=== PATIENT | female | born 1985 | race Caucasian/White ===

== ENCOUNTER 2017-09-03 17:18 | Outpatient (CLI) | payer MEDICAID ==
[~2017-09-03] VITALS: Ht 160 cm; Wt 64.5 kg
[~2017-09-03 17:18] MED LIST: AZIT250T94 PO; IBUP-1542 PO; OSLT75C PO
[2017-09-03 17:32] VITALS: BP 99/63; PULSE 82; RESP 18
[2017-09-03 17:33] VITALS: Ht 160 cm; Wt 64.5 kg
--- NOTE | 2017-09-03 18:02 | RADRPT ---
PROCEDURE: US biophysical profile. CLINICAL INDICATION: labor. TECHNIQUE: Multiple sonographic images of the uterus were obtained. Transvaginal sonogra phy of the cervix was also performed. The images were reviewed on a PACS workstation. COMPARISON: No prior studies are available for comparison. FINDINGS: There is a single live intrauterine gestation. heart rate is 134 beats per minute. The position is cephalic. The placenta is posterior grade II with complete placenta previa. Cervical length is 2.7 cm. The ANGELA is 9.2 cm. (Normal = 5-20 cm.) Breathing Movement: 2 Gross Body Movement: 2 Tone: 2 Qualitative Amniotic Fluid Volume: 2 TOTAL: 8 IMPRESSION: 1. The biophysical score is 8/8. 2. There is complete placenta previa. 3. Cervical length is 2.7 cm. RPTAT: QQ .Karl Hussein MD, Date Time Electronically viewed and signed by .Karl Hussein MD, MD on 09/03/2017 18:02 .R/
--- NOTE | 2017-09-03 18:41 | TRIAGE ---
OB Triage Datetime Report Generated by CPN: 09/03/2017 18:40 Datetime: 09/03/2017 18:19 Stage of : OB Triage Headache: Denies Blurred Vision: No RUQ Epigastric Pain: Denies Facial Edema: None Labor Evaluation Frequency: occ Monitor Mode: External Quality: Mild Pattern: Normal: <= 5 Contractions in 10 Minutes Resting Tone [place]: Relaxed Heart Rate FHR Baseline Rate: 130 Monitor Mode: External US FHR Baseline Changes: No Baseline Change Variability: Moderate 6-25 bpm Accelerations: 15X15 Decelerations: None Category: Category I Pain Presence: None/Denies Vaginal Exam Membrane Status: Intact Datetime: 09/03/2017 17:41 Stage of : OB Triage Maternal Assessment Level of Consciousness: Fully Conscious DTR's/Clonus: DTRs 2+; No Clonus Headache: Denies Blurred Vision: No Respiratory Effort: Unlabored; Regular Rhythm; Equal Expansion Breath Sounds, Left: Clear and Equal Breath Sounds, Right: Clear and Equal Nausea/Vomiting: Denies RUQ Epigastric Pain: Denies Lower Extremities Edema: None Degree: None Upper Extremities Edema: None Degree: None Facial Edema: None Temperature Route: Oral Fall Risk Assessment History of Falling: (0) No Secondary Diagnosis: (0) No Ambulatory Aid: (0) Bedrest/Nurse Assist IV Therapy: (0) No Gait: (0) Normal/Bedrest/Immobile Mental Status: (0) Oriented to Own Ability Fall Score: 0 Fall Risk Score Definition: No Risk: No action required Monitor Mode: External Heart Rate FHR Baseline Rate: 150 Monitor Mode: External US Pain Assessment Pain Scale: 0 Datetime: 09/03/2017 17:23 EGA: 37.0 Datetime: 09/03/2017 17:06 Time of Arrival: 09/03/2017 17:06 Arrived By: Ambulatory Arrived From: Home Chief Complaint: decreased movement since 2pm Movement: Decreased Contractions: Denies/Absent Rupture of Membranes: Denies Vaginal Bleeding: None Vaginal Discharge: Denies Recent Sexual Intercouse: Denies Abdominal Trauma: Not Applicable Patient Complaints: Other Additional Patient Complaints: presented to triage complaining of not feeling her baby move since 2pm, has been seeing Dr Lam and was told that she could go to any hospital due to her md is chris livingston, she had MRI 08/21/17 and was told that she has placenta previa and posibility of hysterectomy dur ing c/s, pt came to hospital and said that she wants second opinion. denies feeling contractions at present, denies bleeding and leaking of water. Time Provider Notified: 09/03/2017 17:30 Provider Notified: Dr Sunshine Initial Plan: efm/ u/s
--- NOTE | 2017-09-03 21:09 | CONS ---
Date/Time of Note Date/Time of Note DATE: 09/03/17 TIME: 20:56 Consultation Date/Type/Reason Admit Date/Time This was mostly due to the fact that the ultrasound showed that she has central placenta previa. September 03, 2017 OB triage consult This patient is a 32 years old , 4, para 3, with estimated date date of confinement of September 24, 2016, which makes it about 37 weeks now. She came to triage complaining of low movement. On examination, she is a well-developed well-nourished patient her ear nose throat ,neck ,chest heart are negative ,Abdomen was soft she has occasional contraction. heart tracing was reactive with fairly good variability and occasional acceleration ,no decelerations. On her general examination, her blood pressure was 99/63, pulse rate 84, respiration 18, temperature 98.8, and oxygen saturation was 96.7 in room temperature heart tone was running around 150-16 She mentioned that the reason she came here was the fact that, her barber shop operator told her not to come back in her office anymore and go to another clinic that may accept the rest of her care,and deliver her ,. Constitutional: No chills, No diaphoresis, No disoriented, No febrile, No improved, No no complaints, No other, No poor po, No requiring IVF, No requiring O2 Eyes: No discharge, No no complaints, No other, No pain, No redness, No visual change ENT: No bleeding, No congestion, No discharge, No dysphagia, No no complaints, No other, No pain, No sore throat Respiratory: No cough, No no complaints, No other, No pain, No pleuritic pain, No shortness of breath, No sputum, No wheezing Cardiovascular: No chest pain, No edema, No lightheadedness, No no complaints, No orthopenea, No other, No palpitations, No paroxysmal nocturnal dyspnea Gastrointestinal: No blood, No constipation, No decreased appetite, No diarrhea , No flatus, No nausea, No no complaints, No other, No pain, No passing stool, No vomiting Genitourinary: other (Pelvic examination was not done for several reason 1 with a history of placenta previa to do the fact that she did not have any contraction or vaginal bleeding), No bleeding, No discharge, No dysuria, No flank pain, No hematuria, No no complaints Musculoskeletal: No back pain, No bone/joint pain, No neck pain, No no complaints, No other, No restricted range of motion, No swelling Skin: No bruising, No erythema, No laceration, No no complaints, No other, No pruritis, No rash, No skin lesions Neurologic: other, No confusion, No dizziness, No focal-weakness, No headache, No no complaints , No seizure, No syncope Additional Comments On ultrasound study the result was a single live intrauterine gestation with heart rate 134 bpm vertex presentation placenta is posterior ,grade 2 ,with complete placenta previa cervical length was 2.7 cm her ANGELA was 9.2 cm and biophysical profile was 8 .Disposition ; the findings was discussed with the patient in detail and the fact that she should find another barber shop operator for continuation of care or just discuss seriously her condition with her previous barber shop operator and the fact that they have some obligation to help her to find a physician that will be able to continue her care and do her high risk section . Exam/Review of Systems Vital Signs Vitals Vital Signs Date Time Temp Pulse Resp B/P Pulse Ox O2 Delivery O2 Flow Rate FiO2 09/03/17 17:32 98.2 82 18 99/63 96 Room Air MERCEDES ALEJANDRE MD Sep 03, 2017 21:08
[2017-09-06] MEDS ORDERED: PREN-17 PO (08:45)
== END 2017-09-03 18:52 | disposition home or self-care (01) ==
LOC: OBT 17:18 → L-D 17:21 → OBT 18:52
DX: O44.03 Complete placenta previa NOS or without hemorrhage, third trimester (principal); Z3A.37 37 weeks gestation of pregnancy
CPT/HCPCS: 76817; 76818; Z7500; G0463

== ENCOUNTER 2017-09-06 11:30 | Inpatient (IN) | END 2017-09-09 18:00 | disposition home or self-care (01) | DRG 766 ==

== ENCOUNTER 2017-09-11 13:19 | Emergency (ER) | END 2017-09-11 14:44 | disposition home or self-care (01) ==